=== PATIENT | male | born 1975 | race African-American/Black ===

== ENCOUNTER 2016-08-04 00:04 | Inpatient (IN) | payer MEDICARE, MEDICAID ==
[~2016-08-04 00:04] MED LIST: AMLO5TAB4 PO; HYDR12.58 PO; IBUP800T PO; INSU100V5 SQ-INSULIN; LISI-170 PO; METF10002 PO
[2016-08-04] MEDS ORDERED: CLINDAMYCIN PMX 900MG/50ML 50 ML ONE (00:55)
[2016-08-04] MEDS ORDERED: MORPHINE SULFATE 4 MG/ML, 1ML ONE (00:55)
[2016-08-04] MEDS ORDERED: ONDANSETRON 2MG/ML, 2ML ONE (00:55)
[2016-08-04 07:00] VITALS: BP 168/116
[2016-08-04] MEDS: IBUPROFEN 600 MG TABLET PO PRN (08:15)
[2016-08-04] MEDS: THIAMINE 100MG TABLET PO SCH (08:15)
[2016-08-04] MEDS: AMLODIPINE 5 MG TABLET PO SCH ×3 (09:00→20:54)
[2016-08-04] MEDS: SODIUM CHLORIDE FLUSH 10ML SYR IVF SCH ×2 (09:00→21:00)
[2016-08-04] MEDS: FOLIC ACID 1 MG TABLET PO SCH (09:00)
[2016-08-04] MEDS ORDERED: hydrALAzine 20 MG/ML, 1ML ONE (12:03)
[2016-08-04] MEDS ORDERED: OXYcodone IR 5MG TABLET ONE (12:04)
[2016-08-04] MEDS: OXYcodone IR 5MG TABLET PO PRN ×2 (12:15→20:59)
[2016-08-04] MEDS: ENOXAPARIN 40 MG/0.4 ML SQ SCH (12:15)
[2016-08-04] MEDS: CEFTAROLINE 600 MG in SODIUM CHLORIDE 0.9% 100 ML IV SCH (12:15)
[2016-08-04] MEDS ORDERED: hydrALAzine 20 MG/ML, 1ML IV PRN (14:30)
[2016-08-04] MEDS ORDERED: LORazepam 2 MG/ML, 1ML ONE (15:41)
[2016-08-04] MEDS ORDERED: LORazepam 2 MG/ML, 1ML IV ONE (17:00)
[2016-08-04 20:15] VITALS: BP 147/82
[2016-08-05] MEDS: CEFTAROLINE 600 MG in SODIUM CHLORIDE 0.9% 100 ML IV SCH ×2 (00:20→12:20)
[2016-08-05] MEDS: OXYcodone IR 5MG TABLET PO PRN ×3 (00:35→12:20)
[2016-08-05 01:36] VITALS: BP 139/78
[2016-08-05 04:47] LABS: BLOOD UREA NITROGEN 11 mg/dL (7-18)
[2016-08-05 04:51] LABS: ASPARTATE AMINO TRANSFERASE 13 U/L (15-37); C-REACTIVE PROTEIN, QUANT 0.51 mg/dL (0.02-0.49)
[2016-08-05] MEDS: ENOXAPARIN 40 MG/0.4 ML SQ SCH (06:27)
[2016-08-05 07:20] VITALS: BP 143/82
[2016-08-05] MEDS: SODIUM CHLORIDE FLUSH 10ML SYR IVF SCH ×2 (09:00→21:32)
[2016-08-05] MEDS: THIAMINE 100MG TABLET PO SCH (09:00)
[2016-08-05] MEDS: AMLODIPINE 5 MG TABLET PO SCH ×3 (09:00→21:47)
[2016-08-05] MEDS: FOLIC ACID 1 MG TABLET PO SCH (10:09)
[2016-08-05 11:53] LABS: BLOOD UREA NITROGEN 12 mg/dL (7-18)
[2016-08-05 13:10] VITALS: BP 152/84
[2016-08-05 19:15] VITALS: BP 143/83
[2016-08-06] MEDS: CEFTAROLINE 600 MG in SODIUM CHLORIDE 0.9% 100 ML IV SCH (00:25)
[2016-08-06] MEDS: IBUPROFEN 600 MG TABLET PO PRN (00:25)
[2016-08-06 02:35] VITALS: BP 156/95
[2016-08-06] MEDS: ENOXAPARIN 40 MG/0.4 ML SQ SCH (05:28)
[2016-08-06 07:42] VITALS: BP 178/104
[2016-08-06] MEDS: FOLIC ACID 1 MG TABLET PO SCH (08:02)
[2016-08-06] MEDS: SODIUM CHLORIDE FLUSH 10ML SYR IVF SCH (08:02)
[2016-08-06] MEDS: AMLODIPINE 5 MG TABLET PO SCH (08:02)
[2016-08-06] MEDS: THIAMINE 100MG TABLET PO SCH (08:02)
[2016-08-06] MEDS ORDERED: AMLO5TAB4 PO (08:27)
[2016-08-06] MEDS ORDERED: CEPH-368 PO (08:27)
[2016-08-06] MEDS ORDERED: HYDR12.58 PO (08:27)
[2016-08-06] MEDS ORDERED: LACT1CAP24 PO (08:27)
[2016-08-06] MEDS ORDERED: IBUP800T PO (08:27)
[2016-08-06] MEDS ORDERED: SULF1TAB24 PO (08:27)
[2016-08-06] MEDS ORDERED: LISI-170 PO (08:34)
[2016-08-06] MEDS ORDERED: CLIN300C93 PO (08:34)
[2016-08-06] MEDS ORDERED: HYDROCHLOROTHIAZIDE 12.5 MG CAPSULE PO SCH (09:00)
[2016-08-06] MEDS ORDERED: LISINOPRIL 20 MG TABLET PO SCH (09:00)
[2016-08-06 09:22] VITALS: BP 153/95
[2016-08-06] MEDS ORDERED: HYDR-3240 PO (10:01)
== END 2016-08-06 10:00 | disposition home or self-care (01) | DRG 895 ==
LOC: ED 00:04 → 3NW 03:45 → SUATTDRO 14:25 → DCLOUNGE 08-06 09:45
PROVIDERS: ADMIT Internal Medicine; ATTEND Internal Medicine
PROC: HZ34ZZZ Individual Counseling for Substance Abuse Treatment, Interpersonal (ICD-10-PCS; principal; 2016-08-04)
DX: F10.10 Alcohol abuse, uncomplicated (principal); E44.1 Mild protein-calorie malnutrition; L03.011 Cellulitis of right finger; I11.9 Hypertensive heart disease without heart failure; D64.9 Anemia, unspecified; F12.10 Cannabis abuse, uncomplicated; I10 Essential (primary) hypertension; F19.10 Other psychoactive substance abuse, uncomplicated; Z71.41 Alcohol abuse counseling and surveillance of alcoholic; Z71.51 Drug abuse counseling and surveillance of drug abuser
CPT/HCPCS: 36415; 80048; 80053; 85025; 85651; 86140; 86141; 96374; 96375; J0712; J1650; J0360; J2060

== ENCOUNTER 2016-11-01 02:53 | Emergency (ER) | payer MEDICARE, MEDICAID ==
[~2016-11-01] VITALS: Ht 160 cm; Wt 68.4 kg
[~2016-11-01 02:53] MED LIST changes: +CEPH-368 PO; +CLIN300C8 PO; +HYDR-3240 PO; +IBUP-1223 PO; -IBUP800T PO; +LACT1CAP24 PO; +SULF1TAB24 PO
[2016-11-01] MEDS ORDERED: LIDOCAINE 1%, 20ML ONE (04:27)
[2016-11-01] MEDS ORDERED: LIDOCAINE 1%, 20ML SQ ONE (04:30)
[2016-11-01] MEDS ORDERED: SULFAMETH./TRIMETHOPRIM DS 800MG/160MG TABLET ONE (05:13)
[2016-11-01 05:18] VITALS: BP 138/86
[2016-11-01] MEDS ORDERED: SULFAMETH./TRIMETHOPRIM DS 800MG/160MG TABLET PO ONE (05:30)
== END 2016-11-01 05:55 | disposition home or self-care (01) ==
LOC: ED 05:40
DX: L02.31 Cutaneous abscess of buttock (principal); I10 Essential (primary) hypertension; E11.9 Type 2 diabetes mellitus without complications; Z86.73 Personal history of transient ischemic attack (TIA), and cerebral infarction without residual deficits
CPT/HCPCS: 10060; 99283; J3490

== ENCOUNTER 2017-01-26 14:00 | Emergency (ER) | payer MEDICARE, MEDICAID ==
[~2017-01-26] VITALS: Ht 165.1 cm; Wt 67.3 kg
[2017-01-26 14:45] LABS: HEMATOCRIT 40.9 % (39.2-51.8); HEMOGLOBIN 13.8 g/dL (13.7-18.0); WHITE BLOOD COUNT 5.3 x10^3/uL (3.4-10)
[2017-01-26 15:18] LABS: BLOOD UREA NITROGEN 18 mg/dL (7-18)
[2017-01-26 15:22] LABS: ASPARTATE AMINO TRANSFERASE 86 U/L (15-37)
[2017-01-26] MEDS ORDERED: POTASSIUM CHLORIDE 20 MEQ TAB.ER.PRT PO ONE (16:30)
[2017-01-26] MEDS ORDERED: POTASSIUM CHLORIDE 20 MEQ TAB.ER.PRT ONE (16:36)
[2017-01-26] MEDS ORDERED: OXYcodone/APAP 10/325MG TABLET ONE (17:36)
[2017-01-26 17:54] VITALS: BP 130/70
[2017-01-26] MEDS ORDERED: OXYcodone/APAP 10/325MG TABLET PO ONE (18:00)
== END 2017-01-26 17:54 | disposition home or self-care (01) ==
LOC: ED 17:35
DX: S02.40CA Maxillary fracture, right side, initial encounter for closed fracture (principal); S00.11XA Contusion of right eyelid and periocular area, initial encounter; Y08.89XA Assault by other specified means, initial encounter; E10.8 Type 1 diabetes mellitus with unspecified complications; I10 Essential (primary) hypertension; Y93.89 Activity, other specified; Y92.410 Unspecified street and highway as the place of occurrence of the external cause; Y99.9 Unspecified external cause status
CPT/HCPCS: 36415; 70450; 80053; 85025; 99285

== ENCOUNTER 2017-02-22 07:21 | Emergency (ER) | payer MEDICARE, MEDICAID ==
[~2017-02-22] VITALS: Ht 165.1 cm; Wt 69.5 kg
[2017-02-22 07:22] VITALS: BP 160/100
== END 2017-02-22 08:52 | disposition home or self-care (01) ==
LOC: ED 08:01
DX: B34.9 Viral infection, unspecified (principal); S02.40EA Zygomatic fracture, right side, initial encounter for closed fracture; I10 Essential (primary) hypertension; E11.9 Type 2 diabetes mellitus without complications; Z86.73 Personal history of transient ischemic attack (TIA), and cerebral infarction without residual deficits; X58.XXXA Exposure to other specified factors, initial encounter; Y93.89 Activity, other specified; Y92.89 Other specified places as the place of occurrence of the external cause; Y99.9 Unspecified external cause status
CPT/HCPCS: 71020; 99284

== ENCOUNTER 2017-04-27 03:46 | Emergency (ER) | payer MEDICARE, MEDICAID ==
[~2017-04-27] VITALS: Ht 165.1 cm; Wt 60.0 kg
[2017-04-27 03:53] VITALS: BP 123/79
[2017-04-27 04:59] LABS: AMPHETAMINE SCREEN, URINE Positive (Negative); BARBITURATE SCREEN, URINE Negative (Negative); BENZODIAZEPINE SCREEN, URINE Negative (Negative); CANNABINOID SCREEN, URINE Negative (Negative); COCAINE SCREEN, URINE Positive (Negative); METHADONE SCREEN, URINE Negative (Negative); OPIATE SCREEN, URINE Negative (Negative)
== END 2017-04-27 05:37 | disposition home or self-care (01) ==
LOC: ED 05:10
DX: S09.90XA Unspecified injury of head, initial encounter (principal); Z72.9 Problem related to lifestyle, unspecified; E11.9 Type 2 diabetes mellitus without complications; I10 Essential (primary) hypertension; Z86.73 Personal history of transient ischemic attack (TIA), and cerebral infarction without residual deficits; Z79.899 Other long term (current) drug therapy; F14.10 Cocaine abuse, uncomplicated; F15.10 Other stimulant abuse, uncomplicated; W01.0XXA Fall on same level from slipping, tripping and stumbling without subsequent striking against object, initial encounter; Y93.89 Activity, other specified; Y99.8 Other external cause status; Y92.89 Other specified places as the place of occurrence of the external cause
CPT/HCPCS: 36415; 70450; 72125; 80307; 82962; 99285

== ENCOUNTER 2017-10-18 15:01 | Inpatient (IN) | payer OTHER, MEDICARE, MEDICAID ==
[~2017-10-18] VITALS: Ht 162.6 cm; Wt 66.0 kg
[2017-10-18] MEDS ORDERED: MORPHINE SULFATE 4 MG/ML, 1ML IVPush ONE (15:30)
[2017-10-18] MEDS ORDERED: SODIUM CHLORIDE 0.9% 1,000ML IVBOLUS ONE (15:30)
[2017-10-18] MEDS ORDERED: ONDANSETRON 2MG/ML, 2ML IVPush ONE (15:30)
[2017-10-18] MEDS ORDERED: SODIUM CHLORIDE FLUSH 10ML SYR IVF ONE (15:30)
[2017-10-18] MEDS ORDERED: PLEASE ENTER HEIGHT AND WEIGHT MC SCH (15:30)
[2017-10-18] MEDS ORDERED: MORPHINE SULFATE 4 MG/ML, 1ML ONE ×2 (15:35→16:47)
[2017-10-18] MEDS ORDERED: ONDANSETRON 2MG/ML, 2ML ONE ×3 (15:35→19:25)
[2017-10-18 15:38] LABS: BASOPHILS # (AUTO) 0.07 x10^3/uL (0-0.1); BASOPHILS % (AUTO) 1 % (0-1); EOSINOPHILS # (AUTO) 0.02 x10^3/uL (0-0.4); EOSINOPHILS % (AUTO) 0 % (1-7); LYMPHOCYTES # (AUTO) 2.65 x10^3/uL (1-3.4); LYMPHOCYTES % (AUTO) 30 % (22-44); MD NO; MEAN CORPUSCULAR HEMOGLOBIN 29.9 pg (27.5-34.5); MEAN CORPUSCULAR HGB CONC 34.2 g/dL (33.2-36.2); MEAN CORPUSCULAR VOLUME 87.3 fL (81-97); MEAN PLATELET VOLUME 8.6 fL (7.4-10.4); MONOCYTES # (AUTO) 1.12 x10^3/uL (0.2-0.8); MONOCYTES % (AUTO) 13 % (2-9); NEUTROPHILS # (AUTO) 5.12 x10^3/uL (1.8-6.8); NEUTROPHILS % (AUTO) 57 % (42-75); PLATELET COUNT 301 x10^3/uL (130-400); RED BLOOD COUNT 5.02 x10^6/uL (4.38-5.82); RED CELL DISTRIBUTION WIDTH 14.8 % (9.4-14.8)
[2017-10-18 15:41] LABS: ALANINE AMINOTRANSFERASE 46 U/L (12-78); ALBUMIN 3.4 g/dL (3.4-5.0); ANION GAP 11 mmol/L (5-15); CALCIUM 8.8 mg/dL (8.5-10.1); CHLORIDE 104 mmol/L (98-107); CREATININE 1.19 mg/dL (0.7-1.3)
[2017-10-18 15:43] LABS: ALKALINE PHOSPHATASE 73 U/L (45-117); BILIRUBIN,TOTAL 0.8 mg/dL (0.2-1.0); TOTAL PROTEIN 7.7 g/dL (6.4-8.2)
[2017-10-18] MEDS ORDERED: CEFOTETAN 2 GM ONE (16:07)
[2017-10-18] MEDS ORDERED: PROPOFOL 10 MG/ML, 20ML ONE ×2 (16:07→19:25)
[2017-10-18] MEDS ORDERED: GLYCOPYRROLATE 0.2MG/1ML, 5ML ONE ×2 (16:07→19:25)
[2017-10-18] MEDS ORDERED: KETOROLAC 30 MG/1 ML ONE (16:07)
[2017-10-18] MEDS ORDERED: ROCURONIUM 10MG/ML,5ML ONE ×2 (16:07→19:25)
[2017-10-18] MEDS ORDERED: DEXAMETHASONE 4 MG/ML, 1ML ONE ×2 (16:07→19:25)
[2017-10-18] MEDS ORDERED: SUCCINYLCHOLINE 20 MG/ML, 10ML ONE ×2 (16:07→19:25)
[2017-10-18] MEDS ORDERED: NEOSTIGMINE 1 MG/ML, 10ML ONE ×2 (16:07→19:25)
[2017-10-18] MEDS ORDERED: PIPERACILLIN/TAZO/PMX 3.375GM 50 ML IV ONE (16:30)
[2017-10-18 16:33] LABS: ACETONE, SERUM Small (20mg/dL) mg/dL (Negative)
[2017-10-18 16:42] LABS: CULTURE INDICATED? NO; MICROSCOPIC NOT IND
[2017-10-18] MEDS ORDERED: PIPERACILLIN/TAZO/PMX 3.375GM 50 ML ONE (16:46)
[2017-10-18] MEDS ORDERED: MIDAZOLAM 1 MG/ML, 2ML ONE (18:15)
[2017-10-18] MEDS ORDERED: FENTANYL PF 250 MCG/5ML ONE (18:17)
[2017-10-18] MEDS ORDERED: BUPIVACAINE/PF 0.5% ONE (18:18)
[2017-10-18] MEDS ORDERED: EPINEPHRINE 1 MG/ML, 1ML ONE (18:18)
[2017-10-18] MEDS ORDERED: NALOXONE 0.4 MG/ML, 1ML ONE (19:25)
[2017-10-18] MEDS ORDERED: CEFAZOLIN 1,000 MG ONE (19:25)
[2017-10-18] MEDS ORDERED: POTASSIUM CHLORIDE 20 MEQ in D5%-0.45% NACL 1,000 ML IV SCH (19:33)
[2017-10-18] MEDS ORDERED: ACETAMINOPHEN 650 MG/20.3 ML UDC ONE (19:50)
[2017-10-18] MEDS ORDERED: FENTANYL PF 100 MCG/2ML ONE (19:50)
[2017-10-18] MEDS ORDERED: OXYcodone 5 MG/5 ML ORAL.SOL UDC ONE (19:50)
[2017-10-18] MEDS: FENTANYL PF 100 MCG/2ML IV PRN ×2 (19:54→20:05)
[2017-10-18] MEDS ORDERED: ONDANSETRON 2MG/ML, 2ML IV PRN (20:00)
[2017-10-18] MEDS ORDERED: hydrALAzine 20 MG/ML, 1ML IV PRN (20:00)
[2017-10-18] MEDS ORDERED: DIPHENHYDRAMINE 25 MG CAPSULE PO PRN (20:00)
[2017-10-18] MEDS ORDERED: PROMETHAZINE 12.5 MG SUPP PR PRN (20:00)
[2017-10-18] MEDS ORDERED: KETOROLAC 30 MG/1 ML IV PRN (20:00)
[2017-10-18] MEDS ORDERED: HYDROmorphone 1 MG/ML, 1ML IV PRN (20:00)
[2017-10-18] MEDS ORDERED: OXYcodone 5 MG/5 ML ORAL.SOL UDC PO PRN (20:00)
[2017-10-18] MEDS ORDERED: MEPERIDINE/PF 25MG/0.5ML IVPush PRN (20:00)
[2017-10-18] MEDS ORDERED: ONDANSETRON 2MG/ML, 2ML IVPush PRN (20:00)
[2017-10-18] MEDS ORDERED: MORPHINE SULFATE 4 MG/ML, 1ML IVPush PRN ×2 (20:00)
[2017-10-18] MEDS ORDERED: ONDANSETRON ODT 8 MG PO PRN (20:00)
[2017-10-18] MEDS ORDERED: LORazepam 2 MG/ML, 1ML IV PRN (20:00)
[2017-10-18] MEDS ORDERED: ACETAMINOPHEN 650 MG/20.3 ML UDC PO PRN (20:00)
[2017-10-18] MEDS ORDERED: ACETAMINOPHEN 325 MG TABLET PO PRN (20:00)
[2017-10-18] MEDS ORDERED: PROMETHAZINE 25 MG/ML, 1ML IV PRN (20:00)
[2017-10-18] MEDS ORDERED: LABETALOL 5MG/ML, 20ML ONE (20:04)
[2017-10-18] MEDS: LABETALOL 5MG/ML, 20ML IV PRN ×2 (20:05→20:14)
[2017-10-18] MEDS ORDERED: morphine SULFATE 10 MG/ML, 1ML ONE (20:15)
[2017-10-18 20:50] VITALS: BP 147/92
[2017-10-18] MEDS: OXYcodone/APAP 5/325MG TABLET PO PRN (23:34)
[2017-10-19 00:15] VITALS: BP 124/80
[2017-10-19] MEDS: OXYcodone/APAP 5/325MG TABLET PO PRN ×3 (03:25→13:35)
[2017-10-19 03:27] VITALS: BP 129/76
[2017-10-19] MEDS ORDERED: OXYC-302 PO (04:10)
[2017-10-19 06:58] VITALS: BP 114/79
[2017-10-19 12:58] VITALS: BP 143/73
== END 2017-10-19 14:15 | disposition home or self-care (01) | DRG 343 ==
LOC: ED 16:49 → EDIP 18:15 → OBSVTOIN 18:15 → 4NOR 20:50
PROVIDERS: ADMIT Surgery; ATTEND Surgery
PROC: 0DTJ4ZZ Resection of Appendix, Percutaneous Endoscopic Approach (ICD-10-PCS; principal; 2017-10-18 18:30)
DX: K35.80 Unspecified acute appendicitis (principal); I10 Essential (primary) hypertension; E11.9 Type 2 diabetes mellitus without complications; F15.90 Other stimulant use, unspecified, uncomplicated; K52.9 Noninfective gastroenteritis and colitis, unspecified
CPT/HCPCS: 36415; 99285; J3490; S0074; 74177; 80053; 81003; 82010; 82962; 83605; 83690; 83735; 85025; 88304; 88341; 88342; 88360; 96365; 96375; J0171; J0690; J1100; J1885; J2250; J2310; J2405; J2543; J2704; J2710; J3010; J3480; G0461; J0330; J7030

== ENCOUNTER 2020-03-15 01:27 | Emergency (ER) | payer MEDICAID, MEDICARE, OTHER ==
[~2020-03-15] VITALS: Ht 165.1 cm; Wt 76.9 kg
[~2020-03-15 01:27] MED LIST changes: -CLIN300C8 PO; +CLIN300C9 PO; -HYDR12.58 PO; +HYDROCHLOROTH12.5 MG PO; +OXYC-302 PO
[2020-03-15 01:32] VITALS: BP 151/91
--- NOTE | 2020-03-15 01:56 | NUR ---
pt bib remsa to T1. ambulatory to bed. pt states he doesn't feel well after drinking one very large drink. placed on o2 sat monitor. PA to bedside to eval. recheck pt in one hour.
== END 2020-03-15 03:37 | disposition home or self-care (01) ==
LOC: ED 03:00
DX: F10.120 Alcohol abuse with intoxication, uncomplicated (principal); Z72.9 Problem related to lifestyle, unspecified; I10 Essential (primary) hypertension; E11.9 Type 2 diabetes mellitus without complications; Z86.73 Personal history of transient ischemic attack (TIA), and cerebral infarction without residual deficits; Y90.0 Blood alcohol level of less than 20 mg/100 ml
CPT/HCPCS: 99283

== ENCOUNTER 2020-03-22 04:35 | Emergency (ER) | payer SELFPAY ==
[~2020-03-22] VITALS: Ht 167.6 cm; Wt 72.0 kg
[~2020-03-22 04:35] MED LIST changes: +HYDR-1067 PO; -HYDR-3240 PO
--- NOTE | 2020-03-22 04:39 | NUR ---
INITIAL PT CONTACT. PT PRESENTS TO ED VIA EMS BEING "FOUND DOWN IN AN ALLEY DUE TO ETOH". PT ALSO C/O BILATERAL LEG/FOOT PAIN AND SWELLING "FOR I DONT KNOW HOW LONG". PT SITTING UPRIGHT ON JENNY RAMIREZ VSS. PT DENIES ANY NEEDS AT THIS TIME. CALL LIGHT IN REACH. PT PROVIDED URINAL TO OBTAIN URINE SAMPLE. ERP AT BEDSIDE.
--- NOTE | 2020-03-22 05:12 | NUR ---
US AT BEDSIDE
[2020-03-22 05:46] LABS: BASOPHILS % (AUTO) 1 % (0-1); EOSINOPHILS % (AUTO) 1 % (1-7); LYMPHOCYTES % (AUTO) 7 % (22-44); MEAN CORPUSCULAR HEMOGLOBIN 29.8 pg (27.5-34.5); MEAN CORPUSCULAR HGB CONC 34.1 g/dL (33.2-36.2); MEAN PLATELET VOLUME 8.8 fL (7.4-10.4); MONOCYTES % (AUTO) 7 % (2-9); NEUTROPHILS % (AUTO) 84 % (42-75); PLATELET COUNT 233 x10^3/uL (130-400); RED BLOOD COUNT 4.35 x10^6/uL (4.38-5.82); RED CELL DISTRIBUTION WIDTH 13.6 % (9.4-14.8)
[2020-03-22 05:50] LABS: ALANINE AMINOTRANSFERASE 83 U/L (12-78); ALBUMIN 3.2 g/dL (3.4-5.0); ANION GAP 8 mmol/L (5-15); CALCIUM 8.2 mg/dL (8.5-10.1); CHLORIDE 111 mmol/L (98-107); CREATININE 0.95 mg/dL (0.7-1.3); MD NO
[2020-03-22 05:54] LABS: ALKALINE PHOSPHATASE 93 U/L (45-117); BILIRUBIN,TOTAL 0.6 mg/dL (0.2-1.0); TOTAL PROTEIN 6.7 g/dL (6.4-8.2)
--- NOTE | 2020-03-22 06:06 | NUR ---
PT SITTING UPRIGHT ON JENNY RAMIREZ, VSS. PT DENIES ANY NEEDS AT THIS TIME. CALL LIGHT AND PERSONAL BELONGINGS WITHIN REACH. WILL CONTINUE TO MONITOR.
[2020-03-22] MEDS ORDERED: LORazepam 1MG TABLET ONE (06:17)
--- NOTE | 2020-03-22 06:22 | NUR ---
US UNABLE TO COMPLETE EXAM DUE TO PT AXIETY AND PAIN RELATED TO PROCEDURE. ERP NOTIFIED. WILL MEDICATE PT PER EMAR. US TO RE-EXAM SHORTLY.
[2020-03-22] MEDS ORDERED: LORazepam 1MG TABLET PO ONE (06:30)
--- NOTE | 2020-03-22 07:01 | NUR ---
BS REPORT FROM KRISTINE, ASSUME CARE OF PT AT THIS TIME. AWAITING US.
--- NOTE | 2020-03-22 07:05 | NUR ---
BEDSIDE REPORT TO GIGI JOYCE
--- NOTE | 2020-03-22 08:12 | NUR ---
PT REGLA/CINDY. VSS/UPDATED IN COMPUTER. CONTINUE TO AWAIT US READ.
--- NOTE | 2020-03-22 09:22 | NUR ---
PER US TECH, US BEING READ BY RADIOLOGY NOW.
[2020-03-22 10:11] VITALS: BP 122/74
== END 2020-03-22 10:14 | disposition home or self-care (01) ==
LOC: ED 10:08
DX: G89.29 Other chronic pain (principal); M79.661 Pain in right lower leg; M79.662 Pain in left lower leg; R60.0 Localized edema; F10.220 Alcohol dependence with intoxication, uncomplicated; D64.9 Anemia, unspecified; R94.5 Abnormal results of liver function studies; I10 Essential (primary) hypertension; E11.9 Type 2 diabetes mellitus without complications; Z86.73 Personal history of transient ischemic attack (TIA), and cerebral infarction without residual deficits; Y90.9 Presence of alcohol in blood, level not specified
CPT/HCPCS: 36415; 71045; 80053; 80320; 83880; 85025; 93970; 99285; G0480